=== PATIENT | male | born 2000 | race Hispanic/Latino ===

== ENCOUNTER 2018-06-14 03:45 | Emergency (ER) | payer SELFPAY ==
[2018-06-14] MEDS ORDERED: Lidocaine 1% PF 5 ML VIAL ONE ×2 (05:15→05:17)
[2018-06-14] MEDS ORDERED: Bacitracin Zinc 1 Packet ONE (08:00)
== END 2018-06-14 08:24 | disposition home or self-care (01) ==
LOC: ERS 03:45
DX: S01.312A Laceration without foreign body of left ear, initial encounter (principal); W06.XXXA Fall from bed, initial encounter
CPT/HCPCS: 12011; J2001